=== PATIENT | female | born 1980 | race Caucasian/White ===

== ENCOUNTER 2016-12-01 11:36 | Day surgery (SDC) | payer OTHER ==
[2016-11-29 17:29] VITALS: BMI 20.5
[2016-12-01 12:03] LABS: BASOPHIL 0.4 % (0-2.0); EOSINOPHIL 0.5 % (0-4.5); MCH 30.9 pg (25.7-33.7); MCHC 33.9 g/dl (32.0-36.0); MEAN CELL VOLUME 91.3 fl (80-96); MEAN PLT VOLUME 7.1 fl (7.5-11.1); NEUTROPHILS 69.6 % (42.8-82.8); PLATELET COUNT 248 K/MM3 (134-434); RDW 13.1 % (11.6-15.6); WHITE BLOOD COUNT 6.3 K/mm3 (4.0-10.0)
[2016-12-01 12:19] LABS: INR 1.12 (0.82-1.09); PROTHROMBIN TIME (PATIENT) 12.3 SEC (9.98-11.88)
[2016-12-01 12:40] VITALS: TEMP 97.6
[2016-12-01 16:57] VITALS: BP 107/65; PULSE 65
--- NOTE | 2016-12-06 14:50 | PATH ---
Surgical Pathology Report Patient Name: RUTH ANN TAVERAS [facility]. Rec. #: [id number] /Age/Gender: 1980 (Age: 36) / F Account: [id number] Location: RADIOLOGY ULTRA Taken: 12/01/2016 Received: 12/02/2016 Reported: 12/06/2016 Physicians: Johan Sagastume M.D. Specimen(s) Received MASS OF RIGHT GROIN CORE BX Clinical History 36-year-old female with right groin mass measuring 3.2 cm of unknown etiology Patient with history of benign cervical polyp Final Diagnosis SOFT TISSUE, RIGHT GROIN, MASS, US GUIDED CORE BIOPSY: CONSISTENT WITH INVOLVEMENT BY ENDOMETRIOSIS (SEE COMMENT). Comment: The biopsy sections show fragments of skeletal and smooth muscle and fibrofatty tissue with focal endometrial-type glands and endometrial-type stroma. Immunohistochemical stain for ER performed and interpreted [facility] is positive in the endometrial-type glandular and stromal cells. Additional immunohistochemical stain for CD10 performed at the [facility], [place], [place] ([id number]) and interpreted [facility] shows endometrial-type stromal cells are positive for CD10. These results are supportive of the interpretation above. Clinical correlations are suggested. Electronically Signed Wai Singh M.D. Gross Description Received in formalin, labeled "right groin," are 5 carcamo, cylindrical portions of soft tissue ranging from 0.5-1.1 cm in length and averaging 0.1 cm in diameter. The specimens are submitted in toto in one cassette. 12/02/201612/02/2016
== END 2016-12-01 16:40 | disposition home or self-care (01) ==
LOC: JRADIR 11:36
PROVIDERS: ATTEND Specialist
PROC: BW4GZZZ Ultrasonography of Pelvic Region (ICD-10-PCS; principal; 2016-12-01)
PROC: 0WBH3ZX Excision of Retroperitoneum, Percutaneous Approach, Diagnostic (ICD-10-PCS; 2016-12-01)
DX: D48.7 Neoplasm of uncertain behavior of other specified sites (principal)
CPT/HCPCS: 36415; 76942-TC; 84703; 85025; 85610; 87899; 88305-TC; 88342-TC